=== PATIENT | male | born 1945 | race Two or more races ===

== ENCOUNTER 2021-03-10 04:06 | Inpatient (IN) | payer BC, MEDICARE ==
[2021-03-10] VITALS (8 sets, daily range): BP systolic 104–137; BP diastolic 61–81
[~2021-03-10] VITALS: Ht 167.6 cm; Wt 87.3 kg
[2021-03-10] MEDS ORDERED: KETOROLAC 30MG/ML VIAL IV STA (04:45)
[2021-03-10] MEDS ORDERED: ASPIRIN 81MG TABLET PO ONE (04:45)
[2021-03-10 05:16] LABS: BASOPHILS % 0.2 % (0.0-2.0); HEMATOCRIT. 47.4 % (42.0-52.0); HEMOGLOBIN. 15.6 g/dL (14.0-18.0); LYMPHOCYTES % 33.2 % (20.0-50.0); MEAN CORPUSCULAR HEMOGLOBIN 28.9 pg (28.0-32.0); MEAN CORPUSCULAR VOLUME 87.4 fL (80.0-94.0); MONOCYTES % 13.3 % (2.0-8.0); NEUTROPHILS % 53.3 % (40.0-76.0); RED BLOOD CELL COUNT 5.42 mill/uL (4.7-6.1)
[2021-03-10 05:18] LABS: CHLORIDE 108 mEq/L (98-107)
[2021-03-10 05:22] LABS: ETHANOL BLOOD < 10 mg/dL
[2021-03-10] MEDS ORDERED: ONDANSETRON HCL 4MG/2ML INJ IV STA (05:36)
[2021-03-10] MEDS ORDERED: MORPHINE SULFATE 4 MG/ML CPJ (NOT FOR IM USE) IV STA (05:36)
[2021-03-10] MEDS ORDERED: HEPARIN 1000 UNITS/ML 10ML ONE (09:46)
[2021-03-10] MEDS ORDERED: NICARDIPINE 100MCG/ML 10ML VIAL (CATH LAB) IV ONE (09:46)
[2021-03-10] MEDS ORDERED: PHENYLEPHRINE 100MCG/ML 10ML VIAL (CATH LAB) IV ONE (09:46)
[2021-03-10] MEDS ORDERED: NITROGLYCERIN 50MCG/ML 10ML VIAL (CATH LAB) IV ONE (09:46)
[2021-03-10] MEDS ORDERED: ONDANSETRON HCL 4MG/2ML INJ IV PRN ×2 (14:15→20:30)
[2021-03-10] MEDS ORDERED: ACETAMINOPHEN 325MG TABLET PO PRN ×2 (14:15→20:30)
[2021-03-10 14:44] LABS: *AMPHETAMINES SCREEN URINE NEGATIVE (NEGATIVE); *BENZODIAZEPINES SCREEN URINE NEGATIVE (NEGATIVE); *COCAINE SCREEN URINE NEGATIVE (NEGATIVE); METHADONE URINE SCREEN NEGATIVE (NEGATIVE)
[2021-03-10 14:45] LABS: CANNABINOID URINE SCREEN NEGATIVE (NEGATIVE); OPIATES URINE SCREEN PRESUMTIVE POSITIVE (NEGATIVE); PHENCYCLIDINE URINE SCREEN NEGATIVE (NEGATIVE)
[2021-03-10 14:56] LABS: *BARBITURATES SCREEN URINE NEGATIVE (NEGATIVE)
[2021-03-10] MEDS ORDERED: IODIXANOL 320MG/ML 100 ML BOTTLE IV ONE ×2 (17:06→17:58)
[2021-03-10] MEDS ORDERED: LIDOCAINE HCL 1% 20ML VIAL (Pyxis) INJ ONE (17:06)
[2021-03-10] MEDS ORDERED: IOHEXOL-300 100 ML BOTTLE ONE (17:06)
[2021-03-10] MEDS ORDERED: FENTANYL CITRATE/PF 50MCG/ML 2ML VIAL ONE (17:25)
[2021-03-10] MEDS ORDERED: MIDAZOLAM HCL 2 MG/2 ML VIAL ONE (17:25)
[2021-03-10] MEDS ORDERED: EPTIFIBATIDE 100 ML IV ONE (18:07)
[2021-03-10] MEDS ORDERED: EPTIFIBATIDE 2 MG/ML 10ML VIAL IV ONE (18:07)
[2021-03-10] MEDS ORDERED: IODIXANOL 320MG/ML 200ML BOTTLE ONE (18:28)
[2021-03-10] MEDS ORDERED: ASPIRIN 325MG TABLET ONE (18:59)
[2021-03-10] MEDS ORDERED: TICAGRELOR 90 MG TABLET PO ONE (19:05)
[2021-03-10] MEDS ORDERED: NALOXONE HCL 0.4MG/ML VIAL IV PRN (20:45)
[2021-03-10] MEDS: ENOXAPARIN 30MG/0.3ML SYR SUBCUT SCH (20:53)
[2021-03-10] MEDS: ATORVASTATIN CALCIUM 40MG TABLET PO SCH (20:59)
[2021-03-11] VITALS (51 sets, daily range): BP systolic 79–132; BP diastolic 31–86
[2021-03-11] MEDS: MORPHINE SULFATE 2 MG/ML CPJ (NOT FOR IM USE) IV PRN (00:50)
[2021-03-11 06:59] LABS: CHLORIDE 108 mEq/L (98-107)
[2021-03-11 07:13] LABS: LDL CHOLESTEROL 41 mg/dL (5-100)
[2021-03-11 07:14] LABS: HDL CHOLESTEROL 30 mg/dL (40-59)
[2021-03-11 07:38] LABS: HEMATOCRIT. 39.4 % (42.0-52.0); HEMOGLOBIN. 14.1 g/dL (14.0-18.0); MEAN CORPUSCULAR HEMOGLOBIN 31.1 pg (28.0-32.0); MEAN PLATELET VOLUME 9.4 fl (7.4-10.4); PLATELET 286 x1000/uL (130-400); RED BLOOD CELL COUNT 4.53 mill/uL (4.7-6.1); RED CELL DISTRIBUTION WIDTH 13.1 % (11.6-14.6)
[2021-03-11] MEDS: ENOXAPARIN 30MG/0.3ML SYR SUBCUT SCH (08:51)
[2021-03-11] MEDS: TICAGRELOR 90 MG TABLET PO SCH ×2 (08:52→16:34)
[2021-03-11] MEDS: PANTOPRAZOLE SODIUM 40 MG/VIAL IV SCH (08:52)
[2021-03-11] MEDS: FUROSEMIDE 20MG/2ML VIAL IVP SCH ×3 (08:52→17:00)
[2021-03-11] MEDS: ASPIRIN 81MG TABLET PO SCH (08:53)
[2021-03-11] MEDS ORDERED: ASPIRIN 81MG TABLET PO SCH (09:00)
[2021-03-11] MEDS: TAMSULOSIN HCL 0.4MG SR CAPSULE PO SCH (10:45)
[2021-03-11 10:58] LABS: PLATELET ESTIMATE NORMAL
[2021-03-11] MEDS: CARVEDILOL 3.125 MG TABLET PO SCH (20:53)
[2021-03-11] MEDS: ATORVASTATIN CALCIUM 40MG TABLET PO SCH (20:57)
[2021-03-12] VITALS (30 sets, daily range): BP systolic 72–113; BP diastolic 43–72
[2021-03-12] MEDS: MORPHINE SULFATE 2 MG/ML CPJ (NOT FOR IM USE) IV PRN (05:12)
[2021-03-12 06:27] LABS: HEMATOCRIT. 44.7 % (42.0-52.0); HEMOGLOBIN. 15.3 g/dL (14.0-18.0); MEAN CORPUSCULAR HEMOGLOBIN 29.6 pg (28.0-32.0); MEAN CORPUSCULAR VOLUME 86.6 fL (80.0-94.0); MEAN PLATELET VOLUME 8.7 fl (7.4-10.4); PLATELET 263 x1000/uL (130-400); RED BLOOD CELL COUNT 5.17 mill/uL (4.7-6.1)
[2021-03-12 07:00] LABS: CHLORIDE 107 mEq/L (98-107)
[2021-03-12] MEDS: ASPIRIN 81MG TABLET PO SCH (09:10)
[2021-03-12] MEDS: PANTOPRAZOLE SODIUM 40 MG/VIAL IV SCH (09:10)
[2021-03-12] MEDS: TAMSULOSIN HCL 0.4MG SR CAPSULE PO SCH (09:11)
[2021-03-12] MEDS: TICAGRELOR 90 MG TABLET PO SCH ×2 (09:11→17:43)
[2021-03-12] MEDS: ENOXAPARIN 40MG/0.4ML SYR SUBCUT SCH (09:11)
[2021-03-12] MEDS: CARVEDILOL 3.125 MG TABLET PO SCH ×2 (09:12→21:00)
[2021-03-12] MEDS ORDERED: COR3 PO (11:38)
[2021-03-12] MEDS ORDERED: LOSA25TA26 MT (11:38)
[2021-03-12] MEDS ORDERED: TICA90TA PO (11:38)
[2021-03-12] MEDS ORDERED: ASPI-1406 MT (11:38)
[2021-03-12] MEDS: FINASTERIDE 5MG TABLET PO SCH (13:30)
[2021-03-12 13:52] LABS: PLATELET ESTIMATE NORMAL
[2021-03-12] MEDS: ATORVASTATIN CALCIUM 40MG TABLET PO SCH (21:16)
[2021-03-13] VITALS (9 sets, daily range): BP systolic 91–112; BP diastolic 53–65
[2021-03-13] MEDS: TICAGRELOR 90 MG TABLET PO SCH (09:00)
[2021-03-13] MEDS: CARVEDILOL 3.125 MG TABLET PO SCH (09:00)
[2021-03-13] MEDS: ENOXAPARIN 40MG/0.4ML SYR SUBCUT SCH (09:58)
[2021-03-13] MEDS: PANTOPRAZOLE SODIUM 40 MG/VIAL IV SCH (09:58)
[2021-03-13] MEDS: TAMSULOSIN HCL 0.4MG SR CAPSULE PO SCH (10:00)
[2021-03-13] MEDS: ASPIRIN 81MG TABLET PO SCH (10:01)
[2021-03-13] MEDS: FINASTERIDE 5MG TABLET PO SCH (10:03)
[2021-03-14] MEDS ORDERED: FAMOTIDINE 20MG/2ML VIAL IV SCH (09:00)
== END 2021-03-13 15:10 | disposition home or self-care (01) | DRG 246 ==
LOC: ER 04:25 → CVICU 10:18 → EDBEDREQTM 12:47 → EDBEDREQ 12:47 → ENRESERV 19:13 → 3WST 03-12 19:00
PROVIDERS: ADMIT Internal Medicine Cardiovascular Disease; ATTEND Internal Medicine Pulmonary Disease
PROC: 027135Z Dilation of Coronary Artery, Two Arteries with Two Drug-eluting Intraluminal Devices, Percutaneous Approach (ICD-10-PCS; principal; 2021-03-10)
PROC: 4A023N7 Measurement of Cardiac Sampling and Pressure, Left Heart, Percutaneous Approach (ICD-10-PCS; 2021-03-10)
PROC: B2111ZZ Fluoroscopy of Multiple Coronary Arteries using Low Osmolar Contrast (ICD-10-PCS; 2021-03-10)
PROC: B2151ZZ Fluoroscopy of Left Heart using Low Osmolar Contrast (ICD-10-PCS; 2021-03-10)
PROC: B41F1ZZ Fluoroscopy of Right Lower Extremity Arteries using Low Osmolar Contrast (ICD-10-PCS; 2021-03-10)
DX: I21.09 ST elevation (STEMI) myocardial infarction involving other coronary artery of anterior wall (principal); I50.41 Acute combined systolic (congestive) and diastolic (congestive) heart failure; E44.1 Mild protein-calorie malnutrition; E66.9 Obesity, unspecified; E87.8 Other disorders of electrolyte and fluid balance, not elsewhere classified; I11.0 Hypertensive heart disease with heart failure; N40.1 Benign prostatic hyperplasia with lower urinary tract symptoms; Z20.822 Contact with and (suspected) exposure to COVID-19; I25.10 Atherosclerotic heart disease of native coronary artery without angina pectoris; R33.8 Other retention of urine; I95.9 Hypotension, unspecified; Z68.31 Body mass index [BMI] 31.0-31.9, adult; Z79.82 Long term (current) use of aspirin; Z79.899 Other long term (current) drug therapy; Z71.3 Dietary counseling and surveillance
CPT/HCPCS: 36415; 71045; 80048; 80053; 80061; 80305; 80320; 83735; 83880; 84443; 84484; 85025; 85347; 87426; 92941; 93005; 93306; 93458; 99291; C1725; C1760; C1769; C1874; C1887; C1893; C9113; J1327; J1644; J1650; J1885; J1940; J2250; J2270; J2370; J2405; J3010; J3490; Q9967; G0480; J8499

== ENCOUNTER 2022-07-18 19:55 | Emergency (ER) | payer BC, MEDICAID, MEDICARE ==
[~2022-07-18] VITALS: Ht 170.2 cm; Wt 95.0 kg
[~2022-07-18 19:55] MED LIST: ASPI-1406 MT; COR3 PO; LOSA25TA26 MT; TICA90TA PO
[2022-07-18 20:38] LABS: HEMATOCRIT. 44.4 % (42.0-52.0); MEAN CORPUSCULAR HEMOGLOBIN 30.5 pg (28.0-32.0); MEAN PLATELET VOLUME 8.5 fl (7.4-10.4); PLATELET 193 x1000/uL (130-400); RED BLOOD CELL COUNT 4.93 mill/uL (4.7-6.1); RED CELL DISTRIBUTION WIDTH 13.7 % (11.6-14.6)
[2022-07-18 20:44] LABS: CHLORIDE 107 mEq/L (98-107)
[2022-07-18 21:29] LABS: PLATELET ESTIMATE NORMAL
[2022-07-19 02:08] LABS: CLARITY URINE CLEAR (CLEAR); COLOR URINE YELLOW (YELLOW); KETONES URINE NEGATIVE (NEGATIVE); LEUKOCYTE ESTERASE URINE NEGATIVE (NEGATIVE); NITRITE URINE NEGATIVE (NEGATIVE); OCCULT BLOOD URINE NEGATIVE (NEGATIVE); PH URINE 7.5 (4.5-8.0); PROTEIN URINE NEGATIVE (NEGATIVE); SPECIFIC GRAVITY URINE 1.057 (1.005-1.030)
[2022-07-19] MEDS: IOHEXOL-350 100 ML BOTTLE ONE ×2 (02:25→02:26)
[2022-07-19 02:30] VITALS: BP 144/79
== END 2022-07-19 04:32 | disposition home or self-care (01) ==
LOC: ER 19:55
DX: M54.50 Low back pain, unspecified (principal); R07.89 Other chest pain; I10 Essential (primary) hypertension
CPT/HCPCS: 36415; 71045; 71275; 80053; 81003; 83690; 84484; 85025; 85379; 93005; 99285; Q9967

== ENCOUNTER 2024-07-13 13:14 | Emergency (ER) | payer MEDICARE, OTHER ==
[~2024-07-13] VITALS: Ht 170.2 cm; Wt 91.0 kg
[2024-07-13 13:37] VITALS: O2SAT 97
[2024-07-13] MEDS: KETOROLAC 15MG/ML VIAL IM ONE (18:18)
[2024-07-13] MEDS: HYDROCODONE/ACETAMINOPHEN 5/325MG TABLET PO ONE (18:18)
[2024-07-13] MEDS ORDERED: IBUP-2029 MT (18:41)
[2024-07-13 19:41] VITALS: BP 131/74; PULSE 71; RESP 16; TEMP 36.8; O2SAT 97
== END 2024-07-13 18:20 | disposition home or self-care (01) ==
LOC: ER 13:14
DX: G89.29 Other chronic pain (principal); M54.9 Dorsalgia, unspecified; I10 Essential (primary) hypertension; N40.0 Benign prostatic hyperplasia without lower urinary tract symptoms; Z79.02 Long term (current) use of antithrombotics/antiplatelets; Z79.82 Long term (current) use of aspirin; Z79.899 Other long term (current) drug therapy
CPT/HCPCS: 99283; 72100; 96372; J1885